=== PATIENT | female | born 1980 | race African-American/Black ===

== ENCOUNTER 2016-11-14 19:57 | Emergency (ER) | payer OTHER ==
[2016-11-14] MEDS ORDERED: Sodium Chloride 0.9% 1,000 ML ONE (20:18)
[2016-11-14] MEDS ORDERED: Metoclopramide HCl 10 MG/2 ML VIAL ONE (20:18)
[2016-11-14] MEDS ORDERED: Ketorolac Tromethamine 30 MG/ML VIAL ONE (20:18)
[2016-11-14] MEDS ORDERED: diphenhydrAMINE HCl 50 MG/ML 1 ML VIAL ONE (20:18)
--- NOTE | 2016-11-14 22:36 | ERRECORD ---
[facility] EMERGENCY RECORD HPI HEADACHE (23:03 BLEW) CHIEF COMPLAINT: Patient presents for evaluation of migraine headache. HISTORIAN: History provided by patient, patient has hx of migraine GASTON. Current GASTON started a few hours ago. Insidious onset. (+) photophobia/photophobia. GASTON is "whole head" with "tightness in neck and shoulders. GASTON is exactly the same as prior migraines. Patient has no meds to take at home for these GASTON's. no trauma. No fever. LOCATION: Symptoms are generalized, Radiation to the neck. QUALITY: Pain is dull in nature, described as throbbing, Described as similar to previous episodes. SEVERITY: Maximum severity of symptoms moderate, Currently symptoms are moderate. TIME COURSE: Gradual onset of symptoms, Symptoms are constant. ASSOCIATED WITH FEMALE: No associated aura, No associated chills, No associated fever, No associated focal weakness, No posterior circulation symptoms present, Not associated with , No associated syncope, No associated trauma, No associated tingling, No associated numbness, No associated upper respiratory infection. EXACERBATED BY: Patient's condition not exacerbated by cough, Patient's condition not exacerbated by deep breaths, Patient's condition exacerbated by light, Patient's condition not exacerbated by movement, Patient's condition not exacerbated by position. RELIEVED BY: Patient's condition relieved by nothing. RISK FACTORS: Subarachnoid hemorrahage risk factor analysis completed. ROS (23:08 BLEW) CONSTITUTIONAL: Negative constitutional review of systems, Historian denies chills, denies fever. EYES: Negative eye review of systems. ENT: Negative ears, nose, throat review of systems. CARDIOVASCULAR: Negative cardiovascular review of systems, Historian denies chest pain, denies palpitations. RESPIRATORY: Negative respiratory review of systems, Historian denies cough, denies shortness of breath. GI: Negative gastrointestinal review of systems, Historian denies abdominal pain, denies constipation, denies diarrhea. MUSCULOSKELETAL: Negative musculoskeletal review of systems. SKIN: Negative skin review of systems. NEUROLOGIC: Negative neurologic review of systems. ENDOCRINE: Negative endocrine review of systems. HEMO/LYMPHATIC: Normal hematologic/lymphatic system review. PSYCHIATRIC: Negative psychiatric review of systems. NOTES: All other ROS is negative except as listed in HPI. PAST MEDICAL HISTORY MEDICAL HISTORY: Notes: hx migraine headaches, Flu vaccine not up to date, Tetanus immunization up to date, &a-1R&a+25V*p+0X*[id number]*c202B*c15G*c2P*p-0X&a-25V&a+1R Name: Mirna Woody : 1980 F36 MedRec: [id number] AcctNum: [id number] Prepared: [facility] Nov 15, 2016 08:03 by Interface Page 1 of 4 pMD [facility] EMERGENCY RECORD Pneumococcal vaccine not up to date. (20:06 MBOS) FEMALE SURGICAL HISTORY: Surgical history of cholecystectomy. (20:06 MBOS) PSYCHIATRIC HISTORY: No previous psychiatric history. (20:06 MBOS) SOCIAL HISTORY: Patient drinks socially, twice a month, Patient denies drug use, Patient currently uses tobacco, smokes cigarettes, daily, Patient smokes 1/2 packs per day. (20:06 MBOS) NOTES: I have reviewed and agree with the PMH/PSxH/FamHx/SocHx obtained by the nurse. (23:08 BLEW) KNOWN ALLERGIES No Known Drug Allergies CURRENT MEDICATIONS (20:03 MBOS) None VITAL SIGNS (20:02 MBOS) VITAL SIGNS: BP: 144/65, Pulse: 89, Resp: 20, Temp: 98.5 (Oral), Pain: 8, O2 sat: 100 on Room Air, Time: 11/14/2016 20:02. PHYSICAL EXAM (23:08 BLEW) CONSTITUTIONAL: Vital signs reviewed, Patient appears non toxic, Patient alert and oriented to person, place and time, Pt is in no apparent distress. HEAD: Head exam included findings of head atraumatic, normocephalic. EYES: Eye exam included findings of eyelids normal to inspection, Pupils equally round and reactive to light, Extraocular muscles intact. some photophobia is present. ENT: ENT exam normal, Nose exam normal, no nasal deformity, no bleeding from nares, Pharynx exam normal, Mouth exam normal, mucous membranes moist. NECK: Neck exam included findings of normal range of motion, Trachea midline. RESPIRATORY CHEST: Respiratory and chest exam normal, Breath sounds clear, No wheezing, No rales, Chest exam included findings of chest movement symmetrical, Chest expansion equal. CARDIOVASCULAR: Cardiovascular assessment normal, Cardiovascular exam included findings of heart rate regular rate and rhythm, Heart sounds normal. ABDOMEN FEMALE: Abdominal exam included findings of abdomen nontender, Bowel sounds normal, no mass, no pulsatile masses, no peritoneal signs. BACK: Back exam included findings of normal inspection, range of motion normal, no costovertebral angle tenderness. UPPER EXTREMITY: Upper extremity exam included findings of inspection normal, Range of motion normal. LOWER EXTREMITY: Lower extremity exam included findings of &a-1R&a+25V*p+0X*l4957V*c202B*c15G*c2P*p-0X&a-25V&a+1R Name: Mirna Woody : 1980 F36 MedRec: [id number] AcctNum: [id number] Prepared: Ankita Nov 15, 2016 08:03 by Interface Page 2 of 4 pMD [facility] EMERGENCY RECORD inspection normal, Range of motion normal. NEURO: Neuro exam findings include patient oriented to person, place and time, Speech normal, no focal motor deficits, no focal sensory deficits. SKIN: Skin exam included findings of skin warm, dry, and normal in color. LYMPHATIC: Lymphatic exam normal. PSYCHIATRIC: Psychiatric exam included findings of patient oriented to person place and time, Normal affect. MEDICATION ADMINISTRATION SUMMARY Drug Name: metoclopramide injection, Dose Ordered: 20 mg, Route: IV Push, Status: Given, Time: 20:39 11/14/2016, Drug Name: ketorolac injection, Dose Ordered: 30 mg, Route: IV Push, Status: Given, Time: 20:39 11/14/2016, Drug Name: diphenhydrAMINE injection, Dose Ordered: 25 mg, Route: IV Push, Status: Given, Time: 20:17 11/14/2016, Drug Name: sodium chloride 0.9 % intravenous, Dose Ordered: 1 L, Route: IV Fluid Infusion, Status: Given, Time: 20:17 11/14/2016, Detailed record available in Medication Service section. DOCTOR NOTES (23:09 BLEW) TEXT: This patient reports that current symptoms are similar in nature to chronic, recurrent headaches. Headache is not consisten with SAH, CO poisoning, glaucoma, ICH, traumatic head injury. Other DDX considered includes tension GASTON, migraine GASTON, cluster GASTON. On re-exam, patient reports good relief of headache and is ready to be discharged. PROBLEM LIST No recorded problems DIAGNOSIS (21:13 BLEW) FINAL: PRIMARY: Chronic migraine. PRESCRIPTION (20:25 BLEW) Compazine tablet: TABLET : 10 mg : ORAL : Quantity: 1 Unit: tab(s) Route: ORAL Schedule: every 8 hours PRN Dispense: 20 May substitute. Refills: No Refills POTENTIAL CONTRAINDICATED INTERACTION: metoclopramide injection (metoclopramide HCl) Override Rationale: Patient no longer on medication. NOTES: Take with 800mg of ibuprofen for Headache. No Refills. Motrin: TABLET : 800 mg : ORAL : Quantity: 1 Unit: tab(s) Route: ORAL Schedule: 3 times a day Dispense: 24 May substitute. Refills: No Refills &a-1R&a+25V*p+0X*[id number]*c202B*c15G*c2P*p-0X&a-25V&a+1R Name: Mirna Woody : 1980 6 MedRec: [id number] AcctNum: [id number] Prepared: Ankita Nov 15, 2016 08:03 by Interface Page 3 of 4 pMD [facility] EMERGENCY RECORD POTENTIAL CONTRAINDICATED INTERACTION: ketorolac injection (ketorolac tromethamine) Override Rationale: Benefits outweigh risks, Patient no longer on medication. NOTES: No Refills. DISPOSITION PATIENT: Disposition Type: Discharge, Disposition: *Discharge Home. (21:13 BLEW) Patient left the department. (22:28 MBOS) Escobar: BLEW=DO Rizo Brandon MBOS=EDSON Solorio, Yaneth &a-1R&a+25V*p+0X*[id number]*c202B*c15G*c2P*p-0X&a-25V&a+1R Name: Mirna Woody : 1980 F36 MedRec: [id number] AcctNum: [id number] Prepared: Ankita Nov 15, 2016 08:03 by Interface Page 4 of 4 pMD MTDD
--- NOTE | 2016-11-14 22:42 | PICIS ---
[facility] EMERGENCY RECORD TRIAGE (SatNov 14, 2016 20:03 MBOS) TRIAGE NOTES: migraine headache since this morning. (SatNov 14, 2016 20:03 MBOS) PATIENT: NAME: Mirna Woody, AGE: 36, GENDER: female, : Sat1980, TIME OF GREET: SatNov 14, 2016 19:58, PREFERRED LANGUAGE: British, ETHNICITY: Not or , ECODE BILLING MAP: [facility], SSN: [id number], Zip Code: [address], KG WEIGHT: 70.31, PHONE: , , , PERSON ID: [id number], PCP: Dionisio Carranza /Mary. (SatNov 14, 2016 20:03 MBOS) COMPLAINT: HEADACHE. (SatNov 14, 2016 20:03 MBOS) ADMISSION: URGENCY: 4 Non Urgent, ADMISSION SOURCE: Home, TRANSPORT: CAR, BED: TRIAGE. (SatNov 14, 2016 20:03 MBOS) ASSESSMENT: Assessment: headache radiating to neck and shoulders with nausea and photophobia. (20:06 MBOS) PAIN: Notes: Tried resting with the lights out, took 800 mg ibuprofen, headache not relieved. (20:06 MBOS) IMMUNIZATIONS: Flu vaccine not up to date, Tetanus immunization up to date, Pneumococcal vaccine not up to date. (20:06 MBOS) SIRS SCORING: Heart Rate 55-109 (0), Temp range 96.8-101.1 (0), respiratory rate 12-24 (0). (20:06 MBOS) PROVIDERS: TRIAGE NURSE: Yaneth Solorio RN. (SatNov 14, 2016 20:03 MBOS) VITAL SIGNS: BP 144/65, Pulse 89, Resp 20, Temp 98.5, (Oral), Pain 8, O2 Sat 100, on Room Air, Time 11/14/2016 20:02. (20:02 MBOS) PREVIOUS VISIT ALLERGIES: No Known Drug Allergies. (SatNov 14, 2016 20:03 MBOS) No Known Drug Allergies. (20:06 MBOS) KNOWN ALLERGIES No Known Drug Allergies CURRENT MEDICATIONS (20:03 MBOS) None VITAL SIGNS (20:02 MBOS) VITAL SIGNS: BP: 144/65, Pulse: 89, Resp: 20, Temp: 98.5 (Oral), Pain: 8, O2 sat: 100 on Room Air, Time: 11/14/2016 20:02. NURSING ASSESSMENT: HEADACHE (20:05 MBOS) CONSTITUTIONAL: Patient arrives ambulatory, Gait steady, History obtained from patient, Patient appears, restless, Patient cooperative, Patient alert, Oriented to person, place and time, Skin warm, Skin dry, Skin normal in color, Mucous membranes pink, Mucous membranes moist, Patient is well-groomed, Patient complains of migraine headache, patient states headache radiates down to her neck and shoulders. She states that it started earlier today and is unrelieved by rest and ibuprofen. PAIN: on a scale 0-10 patient rates pain as 8. &a-1R&a+25V*p+0X*e7565P*c202B*c15G*c2P*p-0X&a-25V&a+1R Name: Mirna Woody : 1980 F36 MedRec: [id number] AcctNum: [id number] Prepared: Ankita Nov 15, 2016 08:08 by Interface Page 1 of 8 pMD [facility] EMERGENCY RECORD HEADACHE: history of migraines, Pain is typical for migraines, Associated with nausea, no associated vomiting, Associated with photophobia, Notes: no identified precipitating factors. NEURO: Pupils equally round and reactive to light, Able to close eyes, Face symmetrical, Speech normal, no visual changes, no facial droop, no facial numbness, no swelling, no paresthesias, Upper extremity strength strong, no numbness to upper extremities, Lower extremity strength, weak on the left, weak on the right, patient states she is weak, no numbness to lower extremities. SAFETY: Side rails up, Cart/Stretcher in lowest position, Call light within reach, Hospital ID band on, Patient in view of the nursing station. NURSING PROCEDURE: DISCHARGE NOTE (21:24 MBOS) DISCHARGE: Patient discharged to home, ambulating without assistance, family driving, accompanied by other family member, Summary of Care printed/ provided, Discharge instructions given to patient, Simple or moderate discharge teaching performed, Prescriptions given and instructions on side effects given, Patient treated and evaluated by physician. NURSING PROCEDURE: IV PATIENT IDENITIFIER: Patient actively involved in identification process, Patient's identity verified by patient stating name, Patient's identity verified by patient stating date, Patient's identity verified by hospital ID bracelet. (20:13 MBOS) IV SITE 1: IV therapy indicated for hydration, IV therapy indicated for medication administration, IV established, to the right antecubital, using an 18 gauge catheter, in one attempt, Saline lock established, Flushed with normal saline (mls): 10, Labs drawn at time of placement, labeled in the presence of the patient and sent to lab. (20:13 MBOS) FOLLOW-UP SITE 1: IV discontinued, due to patient being discharged, catheter intact. (21:25 MBOS) SAFETY: Side rails up, Cart/Stretcher in lowest position, Call light within reach, Hospital ID band on, Patient in view of the nursing station. (20:13 MBOS) NURSING PROCEDURE: NURSE NOTES (20:59 MBOS) NURSES NOTES: Patient is improving, Patient in no apparent distress, Patient states decreased pain, Notes: Patient reports feeling better and that her pain is gone. IV fluids still running. Advised patient that when the fluids finish, I will recheck her vitals. MEDICATION ADMINISTRATION SUMMARY Drug Name: metoclopramide injection, Dose Ordered: 20 mg, Route: IV &a-1R&a+25V*p+0X*b5003J*c202B*c15G*c2P*p-0X&a-25V&a+1R Name: Mirna Woody : 1980 F36 MedRec: [id number] AcctNum: [id number] Prepared: Ankita Nov 15, 2016 08:08 by Interface Page 2 of 8 pMD [facility] EMERGENCY RECORD Push, Status: Given, Time: 20:39 11/14/2016, Drug Name: ketorolac injection, Dose Ordered: 30 mg, Route: IV Push, Status: Given, Time: 20:39 11/14/2016, Drug Name: diphenhydrAMINE injection, Dose Ordered: 25 mg, Route: IV Push, Status: Given, Time: 20:17 11/14/2016, Drug Name: sodium chloride 0.9 % intravenous, Dose Ordered: 1 L, Route: IV Fluid Infusion, Status: Given, Time: 20:17 11/14/2016, Detailed record available in Medication Service section. MEDICATION SERVICE diphenhydrAMINE injection: Order: diphenhydrAMINE injection (diphenhydramine HCl) - Dose: 25 mg : IV Push Ordered by: Fletcher Rizo DO Entered by: Fletcher Rizo DO SatNov 14, 2016 20:15 , Acknowledged by: Yaneth Solorio RN SatNov 14, 2016 20:17 Documented as given by: Yaneth Solorio RN SatNov 14, 2016 20:17 Patient, Medication, Dose, Route and Time verified prior to administration. IV SITE #1 IVP, initial medication, Slowly, Awake and alert- acceptable, Catheter placement confirmed via flush prior to administration, IV site without signs or symptoms of infiltration during medication administration, No swelling during administration, No drainage during administration, IV flushed after administration, Correct patient, time, route, dose and medication confirmed prior to administration, Patient advised of actions and side-effects prior to administration, Allergies confirmed and medications reviewed prior to administration, Patient in position of comfort, Side rails up, Cart in lowest position. ketorolac injection: Order: ketorolac injection (ketorolac tromethamine) - Dose: 30 mg : IV Push Ordered by: Fletcher Rizo DO Entered by: Fletcher Rizo DO SatNov 14, 2016 20:15 , Acknowledged by: Yaneth Solorio RN SatNov 14, 2016 20:17 Documented as given by: Yaneth Solorio RN SatNov 14, 2016 20:39 Patient, Medication, Dose, Route and Time verified prior to administration. IV SITE #1 IVP, subsequent different medication, Slowly, Awake and alert- acceptable, Catheter placement confirmed via flush prior to administration, IV site without signs or symptoms of infiltration during medication administration, No swelling during administration, No drainage during administration, IV flushed after administration, Correct patient, time, route, dose and medication confirmed prior to administration, Patient advised of actions and side-effects prior to administration, Allergies confirmed and medications reviewed prior to administration, Patient in position of comfort, Side rails up, Cart in lowest position. metoclopramide injection: Order: metoclopramide injection (metoclopramide HCl) - Dose: 20 mg : IV Push Ordered by: Fletcher Rizo DO Entered by: Fletcher Rizo DO SatNov 14, 2016 20:15 , &a-1R&a+25V*p+0X*x1979S*c202B*c15G*c2P*p-0X&a-25V&a+1R Name: Mirna Woody : 1980 F36 MedRec: [id number] AcctNum: [id number] Prepared: [facility] Nov 15, 2016 08:08 by Interface Page 3 of 8 pMD [facility] EMERGENCY RECORD Acknowledged by: Yaneth Solorio RN SatNov 14, 2016 20:17 Documented as given by: Yaneth Solorio RN SatNov 14, 2016 20:39 Patient, Medication, Dose, Route and Time verified prior to administration. IV SITE #1 IVP, subsequent different medication, Slowly, Awake and alert- acceptable, Catheter placement confirmed via flush prior to administration, IV site without signs or symptoms of infiltration during medication administration, No swelling during administration, No drainage during administration, IV flushed after administration, Correct patient, time, route, dose and medication confirmed prior to administration, Patient advised of actions and side-effects prior to administration, Allergies confirmed and medications reviewed prior to administration, Patient in position of comfort, Side rails up, Cart in lowest position. sodium chloride 0.9 % intravenous: Order: sodium chloride 0.9 % intravenous (0.9 % sodium chloride) - Dose: 1 L : IV Fluid Infusion Ordered by: Fletcher Rizo DO Entered by: Fletcher Rizo DO SatNov 14, 2016 20:15 , Acknowledged by: Yaneth Solorio RN SatNov 14, 2016 20:17 Documented as given by: Yaneth Solorio RN SatNov 14, 2016 20:17 Patient, Medication, Dose, Route and Time verified prior to administration. IV SITE #1 IV fluids established for hydration, IV SITE #1 into right antecubital, IV SITE #1 1st bag hung, amount 1 Liter hung, IV SITE #1 bolus of 1000 ml established, via primary tubing, via pump tubing, IV SITE #1 on IV pump, Awake and alert- acceptable, Catheter placement confirmed via flush prior to administration, IV site without signs or symptoms of infiltration during medication administration, No swelling during administration, No drainage during administration, IV flushed after administration, Correct patient, time, route, dose and medication confirmed prior to administration, Patient advised of actions and side-effects prior to administration, Allergies confirmed and medications reviewed prior to administration, Patient in position of comfort, Side rails up, Cart in lowest position. : Follow Up : _IV SITE #1:_, IV fluid infusion discontinued, on SatNov 14, 2016 21:25, Total fluid hydration time IV site 1 1 hour, ., Total amount infused: 1000ml, IV Discontinued with catheter intact, Patient in position of comfort, Side rails up, Cart in lowest position. (21:23 MBOS) HPI HEADACHE (23:03 BLEW) CHIEF COMPLAINT: Patient presents for evaluation of migraine headache. HISTORIAN: History provided by patient, patient has hx of migraine GASTON. Current GASTON started a few hours ago. Insidious onset. (+) photophobia/photophobia. GASTON is "whole head" with "tightness in neck and shoulders. GASTON is exactly the same as prior migraines. Patient has no meds to take at home for these GASTON's. no trauma. No fever. LOCATION: Symptoms are generalized, Radiation to the neck. QUALITY: &a-1R&a+25V*p+0X*b7110J*c202B*c15G*c2P*p-0X&a-25V&a+1R Name: Mirna Woody : 1980 F36 MedRec: [id number] AcctNum: [id number] Prepared: [facility] Nov 15, 2016 08:08 by Interface Page 4 of 8 pMD [facility] EMERGENCY RECORD Pain is dull in nature, described as throbbing, Described as similar to previous episodes. SEVERITY: Maximum severity of symptoms moderate, Currently symptoms are moderate. TIME COURSE: Gradual onset of symptoms, Symptoms are constant. ASSOCIATED WITH FEMALE: No associated aura, No associated chills, No associated fever, No associated focal weakness, No posterior circulation symptoms present, Not associated with , No associated syncope, No associated trauma, No associated tingling, No associated numbness, No associated upper respiratory infection. EXACERBATED BY: Patient's condition not exacerbated by cough, Patient's condition not exacerbated by deep breaths, Patient's condition exacerbated by light, Patient's condition not exacerbated by movement, Patient's condition not exacerbated by position. RELIEVED BY: Patient's condition relieved by nothing. RISK FACTORS: Subarachnoid hemorrahage risk factor analysis completed. ROS (23:08 BLEW) CONSTITUTIONAL: Negative constitutional review of systems, Historian denies chills, denies fever. EYES: Negative eye review of systems. ENT: Negative ears, nose, throat review of systems. CARDIOVASCULAR: Negative cardiovascular review of systems, Historian denies chest pain, denies palpitations. RESPIRATORY: Negative respiratory review of systems, Historian denies cough, denies shortness of breath. GI: Negative gastrointestinal review of systems, Historian denies abdominal pain, denies constipation, denies diarrhea. MUSCULOSKELETAL: Negative musculoskeletal review of systems. SKIN: Negative skin review of systems. NEUROLOGIC: Negative neurologic review of systems. ENDOCRINE: Negative endocrine review of systems. HEMO/LYMPHATIC: Normal hematologic/lymphatic system review. PSYCHIATRIC: Negative psychiatric review of systems. NOTES: All other ROS is negative except as listed in HPI. PAST MEDICAL HISTORY MEDICAL HISTORY: Notes: hx migraine headaches, Flu vaccine not up to date, Tetanus immunization up to date, Pneumococcal vaccine not up to date. (20:06 MBOS) FEMALE SURGICAL HISTORY: Surgical history of cholecystectomy. (20:06 MBOS) PSYCHIATRIC HISTORY: No previous psychiatric history. (20:06 MBOS) SOCIAL HISTORY: Patient drinks socially, twice a month, Patient denies drug use, Patient currently uses tobacco, smokes cigarettes, daily, Patient smokes 1/2 packs per day. (20:06 MBOS) &a-1R&a+25V*p+0X*e8284J*c202B*c15G*c2P*p-0X&a-25V&a+1R Name: Mirna Woody : 1980 F36 MedRec: [id number] AcctNum: [id number] Prepared: Ankita Nov 15, 2016 08:08 by Interface Page 5 of 8 pMD [facility] EMERGENCY RECORD NOTES: I have reviewed and agree with the PMH/PSxH/FamHx/SocHx obtained by the nurse. (23:08 BLEW) PHYSICAL EXAM (23:08 BLEW) CONSTITUTIONAL: Vital signs reviewed, Patient appears non toxic, Patient alert and oriented to person, place and time, Pt is in no apparent distress. HEAD: Head exam included findings of head atraumatic, normocephalic. EYES: Eye exam included findings of eyelids normal to inspection, Pupils equally round and reactive to light, Extraocular muscles intact. some photophobia is present. ENT: ENT exam normal, Nose exam normal, no nasal deformity, no bleeding from nares, Pharynx exam normal, Mouth exam normal, mucous membranes moist. NECK: Neck exam included findings of normal range of motion, Trachea midline. RESPIRATORY CHEST: Respiratory and chest exam normal, Breath sounds clear, No wheezing, No rales, Chest exam included findings of chest movement symmetrical, Chest expansion equal. CARDIOVASCULAR: Cardiovascular assessment normal, Cardiovascular exam included findings of heart rate regular rate and rhythm, Heart sounds normal. ABDOMEN FEMALE: Abdominal exam included findings of abdomen nontender, Bowel sounds normal, no mass, no pulsatile masses, no peritoneal signs. BACK: Back exam included findings of normal inspection, range of motion normal, no costovertebral angle tenderness. UPPER EXTREMITY: Upper extremity exam included findings of inspection normal, Range of motion normal. LOWER EXTREMITY: Lower extremity exam included findings of inspection normal, Range of motion normal. NEURO: Neuro exam findings include patient oriented to person, place and time, Speech normal, no focal motor deficits, no focal sensory deficits. SKIN: Skin exam included findings of skin warm, dry, and normal in color. LYMPHATIC: Lymphatic exam normal. PSYCHIATRIC: Psychiatric exam included findings of patient oriented to person place and time, Normal affect. EVENTS TRANSFER: Triage to Emergency Triage. (SatNov 14, 2016 20:03 MBOS) Emergency Triage to Emergency Room -02. (20:06 MBOS) Removed from Emergency Emergency Room -02. (22:28 MBOS) DOCTOR NOTES (23:09 BLEW) TEXT: This patient reports that current symptoms are similar in nature to chronic, recurrent headaches. Headache is not &a-1R&a+25V*p+0X*g7667Y*c202B*c15G*c2P*p-0X&a-25V&a+1R Name: Mirna Woody : 1980 F36 MedRec: [id number] AcctNum: [id number] Prepared: [facility] Nov 15, 2016 08:08 by Interface Page 6 of 8 pMD [facility] EMERGENCY RECORD consisten with SAH, CO poisoning, glaucoma, ICH, traumatic head injury. Other DDX considered includes tension GASTON, migraine GASTON, cluster GASTON. On re-exam, patient reports good relief of headache and is ready to be discharged. PROBLEM LIST No recorded problems DIAGNOSIS (21:13 BLEW) FINAL: PRIMARY: Chronic migraine. DISPOSITION PATIENT: Disposition Type: Discharge, Disposition: *Discharge Home. (21:13 BLEW) Patient left the department. (22:28 MBOS) INSTRUCTION (20:25 BLEW) DISCHARGE: MIGRAINE HEADACHE. FOLLOWUP: [facility], [facility], [facility], [facility] [address], , Follow up with Primary Care Physician in 3-4 days. SPECIAL: Call your doctor or return with worsening or worrisome symptoms. PRESCRIPTION (20:25 BLEW) Compazine tablet: TABLET : 10 mg : ORAL : Quantity: 1 Unit: tab(s) Route: ORAL Schedule: every 8 hours PRN Dispense: 20 May substitute. Refills: No Refills POTENTIAL CONTRAINDICATED INTERACTION: metoclopramide injection (metoclopramide HCl) Override Rationale: Patient no longer on medication. NOTES: Take with 800mg of ibuprofen for Headache. No Refills. Motrin: TABLET : 800 mg : ORAL : Quantity: 1 Unit: tab(s) Route: ORAL Schedule: 3 times a day Dispense: 24 May substitute. Refills: No Refills POTENTIAL CONTRAINDICATED INTERACTION: ketorolac injection (ketorolac tromethamine) Override Rationale: Benefits outweigh risks, Patient no longer on medication. NOTES: No Refills. IMAGING (21:26 MBOS) *DISCHARGE INSTRUCTIONS RECEIPT: Image captured from scanner. *SUPPLY CHARGE SHEET: Image captured from scanner. ADMIN (SatNov 15, 2016 08:01 BLEW) DIGITAL SIGNATURE: DO Rizo Brandon. &a-1R&a+25V*p+0X*h1621I*c202B*c15G*c2P*p-0X&a-25V&a+1R Name: Mirna Woody : 1980 F36 MedRec: [id number] AcctNum: [id number] Prepared: SatNov 15, 2016 08:08 by Interface Page 7 of 8 pMD [facility] EMERGENCY RECORD Escobar: BRAD=DO Rizo Brandon MBBONNY=EDSON Solorio, Yaneth &a-1R&a+25V*p+0X*q7698U*c202B*c15G*c2P*p-0X&a-25V&a+1R Name: Mirna Woody : 1980 F36 MedRec: [id number] AcctNum: [id number] Prepared: SatNov 15, 2016 08:08 by Interface Page 8 of 8 pMD MTDD
== END 2016-11-14 21:23 | disposition home or self-care (01) ==
LOC: NAV ERS 19:57
DX: G43.909 Migraine, unspecified, not intractable, without status migrainosus (principal); F17.210 Nicotine dependence, cigarettes, uncomplicated
CPT/HCPCS: 96361; 96374; 96375; J1200; J1885; J2765; J7050

== ENCOUNTER 2017-06-27 11:25 | Outpatient (CLI) | payer OTHER ==
--- NOTE | 2017-06-27 13:19 | RAD ---
FOUR VIEWS OF THE LEFT KNEE: Date: 06-27-17 Comparison: None. History: Medial knee pain. FINDINGS: No fracture or dislocation. No knee joint effusion. IMPRESSION: No acute findings. POS: JESSICA
== END 2017-06-27 11:26 | disposition home or self-care (01) ==
LOC: NAV RAD 11:25
PROVIDERS: ATTEND Nurse Practitioner Family
DX: M25.562 Pain in left knee (principal)